=== PATIENT | male | born 1950 | race Caucasian/White ===

== ENCOUNTER 2022-05-14 09:52 | Emergency (ER) | payer BC, SELFPAY ==
[2022-05-14 10:24] VITALS: BP 190/105; PULSE 61; RESP 18; TEMP 36.4; O2SAT 99; BMI 27.8
[2022-05-14 10:28] VITALS: PULSE 57; O2SAT 98
[2022-05-14 10:30] VITALS: BP 176/82; PULSE 58; O2SAT 98
--- NOTE | 2022-05-14 10:40 | PC.NURSE ---
Spoke to pt's on the phone before pt's arrival. asking if pt should come to ED to be seen for his tooth pain x 3 days. Advised for pt to call Dentist for an emergent consult. stated We have an appt at 11 but they aren't sure what they can do, he needs it pulled RN advised pt's that we cannot pull teeth in the ED and if he has and appt with a dentist office then they should try that first before coming to ED. Pt missed appt and arrived to ED. Given ice pack to face while waiting for MD mari. Pt states laura spencer run out of here if i cant get some pain meds soon. Pt advised of wait and offered tylenol and ibuprofen and states he already took some at home and that it didnt do anything. NAD at this time.
--- NOTE | 2022-05-14 11:57 | PC.NURSE ---
Pt and very upset about wait. Updated frequently. Ice pack offered, declined, then accepted. States they had an appointment (initially said they did not) and are upset they missed it. Discussed triage, having to see most ill first. Continued to be very annoyed with staff. Encouraged patience. Provider aware however unstable pt's in ED being seen. Pt/family aware 2nd provider is coming on at 1200.
[2022-05-14] MEDS: KETOROLAC 30 MG/ML VIAL IM (12:07)
--- NOTE | 2022-05-14 12:09 | ED_ITS ---
HPI - Dental/Oral <Elana Ortega PA-C - Last Filed: 05/14/22 12:32> General Chief complaint: Dental/Oral Stated complaint: Tooth Pain Time Seen by Provider: 05/14/22 11:58 Source: patient and family Mode of arrival: Ambulatory History of Present Illness HPI Narrative: 71-year-old male with past medical history hypertension presents to the emergency room with 4 days of right-sided lower tooth pain. Patient states that he had a root canal done on it several years ago. Patient states that his pain started spontaneously 4 days ago, has been getting worse. Patient denies seeing any discharge. Patient denies fever, chills, nausea, vomiting, trouble swallowing. Patient states he has been taking ibuprofen and Tylenol with minimal relief. Patient called his dentist this morning, they directed him to the ED for antibiotics and pain control prior to seeing him. Related Data Home Medications Medication Instructions Recorded Confirmed metoprolol tartrate 50 mg tablet 50 mg PO QDAY ##0 03/13/16 Previous Rx's Medication Instructions Recorded acetaminophen 300 mg-codeine 15 mg 1 tab PO Q8H PRN pain #14 tabs 05/14/22 tablet amoxicillin 875 mg-potassium 1 tab PO Q12H 14 days #28 tabs 05/14/22 clavulanate 125 mg tablet Allergies Allergy/AdvReac Type Severity Reaction Status Date / Time No Known Drug Allergies Allergy Verified 05/14/22 10:27 Review of Systems <Elana Ortega PA-C - Last Filed: 05/14/22 12:32> Review of Systems ROS Unobtainable: All systems reviewed & are unremarkable except as noted in HPI and below Constitutional Constitutional: Denies chills, Denies fatigue, Denies fever(s), Denies frequent falls, Denies lethargy and Denies weakness Eyes Eyes: Denies change in vision, Denies eye discharge, Denies irritation and Denies loss of vision ENT Ears, Nose, Mouth, and Throat: Denies change in voice, Reports dental pain, Denies dizziness, Denies neck pain, Denies sore throat and Denies throat swelling Cardiovascular Cardiovascular: Denies chest pain, Denies irregular heart rhythm, Denies lightheadedness, Denies palpitations, Denies dyspnea, Denies dyspnea on exertion and Denies orthopnea Respiratory Respiratory: Denies cough, Denies dyspnea, Denies dyspnea on exertion and Denies wheezing Gastrointestinal Gastrointestinal: Denies abdominal pain, Denies change in bowel habits, Denies diarrhea, Denies nausea and Denies vomiting Genitourinary Genitourinary: Denies hematuria, Denies flank pain, Denies urinary incontinence and Denies urinary urgency Musculoskeletal Musculoskeletal: Denies back pain, Denies muscle weakness, Denies neck pain, Denies numbness and Denies tingling Integumentary/Breasts Skin/Breast: Denies pruritus, Denies erythema, Denies rash and Denies wounds Neurologic Neurologic: Denies behavioral changes, Denies confusion, Denies dizziness, Denies frequent falls, Denies loss of vision, Denies numbness, Denies tingling and Denies weakness Psychiatric Psychiatric: Denies anxiety, Denies behavioral changes, Denies confusion, Denies depression, Denies homicidal ideation and Denies suicidal ideation Endocrine Endocrine: Denies fatigue, Denies flushing and Denies palpitations Hematologic/Lymphatic Hematologic/Lymphatic: Denies easy bruising Allergic/Immunologic Allergic/Immunologic: Denies urticaria, Denies throat swelling and Denies wheezing Patient History <Elana Ortega PA-C - Last Filed: 05/14/22 12:32> Social History Smoking Status: Former smoker Smoking Status: Former smoker alcohol intake frequency: 3 or more drinks per day Substance Use Type: does not use Exam <Elana Ortega PA-C - Last Filed: 05/14/22 12:32> Narrative Exam Narrative: Const General:?cooperative, healthy appearing and comfortable [facility] Head:?normal to inspection Ears:?hearing grossly normal bilaterally Nose:?external nose normal Face and sinus:?normal facial exam and sinuses nontender Mouth:?oral mucosae normal; TTP of gums inferior to teeth 20, 21. PE consistent with a periapical abscess. Airway patent. No drooling. Throat:?posterior oropharynx normal Eyes General:?appearance normal, both eyes and all related structures Neck Neck:?normal visual inspection and no lymphadenopathy noted Resp Effort & Inspection:?normal respiratory effort Auscultation:?clear to auscultation bilaterally Cardio Rate:?regular rate Rhythm:?regular rhythm Neuro General:?patient alert, patient awake and patient oriented x3 Initial Vital Signs Initial Vital Signs: Vital Signs Temperature 97.6 F 05/14/22 10:24 Pulse Rate 61 05/14/22 10:24 Respiratory Rate 18 05/14/22 10:24 Blood Pressure 190/105 H 05/14/22 10:24 Pulse Oximetry 99 05/14/22 10:24 Oxygen Delivery Method 05/14/22 10:24 <Maddison Delcid DO - Last Filed: 05/14/22 18:57> Initial Vital Signs Initial Vital Signs: Vital Signs Temperature 97.6 F 05/14/22 10:24 Pulse Rate 61 05/14/22 10:24 Respiratory Rate 18 05/14/22 10:24 Blood Pressure 190/105 H 05/14/22 10:24 Pulse Oximetry 99 05/14/22 10:24 Oxygen Delivery Method 05/14/22 10:24 Course <Elana Ortega PA-C - Last Filed: 05/14/22 12:32> Orders Ordered: Discontinued Medications Ketorolac Tromethamine (Ketorolac 30 Mg/Ml Vial) 30 mg IM NOW ONE Stop: 05/14/22 11:59 Last Admin: 05/14/22 12:07 Dose: 30 mg Documented By: CTS Vital Signs Vital signs: Vital Signs - 8 hr 05/14/22 12:30 Pulse Rate 80 Respiratory Rate 18 Blood Pressure 160/80 H Pulse Oximetry 98 <Maddison Delcid DO - Last Filed: 05/14/22 18:57> Orders Ordered: Discontinued Medications Ketorolac Tromethamine (Ketorolac 30 Mg/Ml Vial) 30 mg IM NOW ONE Stop: 05/14/22 11:59 Last Admin: 05/14/22 12:07 Dose: 30 mg Documented By: CTS Vital Signs Vital signs: Vital Signs - 8 hr 05/14/22 12:30 Pulse Rate 80 Respiratory Rate 18 Blood Pressure 160/80 H Pulse Oximetry 98 MDM - Dental/Oral <Elana Ortega PA-C - Last Filed: 05/14/22 12:32> MDM Narrative Medical decision making narrative: 71-year-old male with past medical history hypertension presents to the emergency room with 4 days of right-sided lower tooth pain. Physical exam consistent with a periapical abscess on a right lower tooth. Will start patient on antibiotics. Prescribed Tylenol with codeine for pain. Patient agrees to follow-up with his dentist as soon as possible. ED return precautions were discussed with patient. Patient verbalized understanding. Discharge Plan Departure Patient Disposition: Home Clinical Impression: Toothache Instructions: DI for Dental Pain Activity Restrictions/Additional Instructions: You were evaluated in the ED today for dental pain. It is likely you have an infection such as a periapical abscess that is causing her pain. You are being started on antibiotics. Please take the antibiotics as prescribed. You will need definitive treatment for the tooth, so please follow-up with your dentist as soon as possible. Return to the ED if you have worsening symptoms, fever, chills, nausea, vomiting. Prescriptions: New acetaminophen-codeine 300-15 mg tablet 1 tab PO Q8H PRN (Reason: pain) Qty: 14 0RF amoxicillin-pot clavulanate 875-125 mg tablet 1 tab PO Q12H 14 Days Qty: 28 0RF No Action metoprolol tartrate 50 MG tablet 50 mg PO QDAY Qty: 0 Referrals: Natalie Boss PA-C [Primary Care Provider] - Visit Report Forms: Patient Portal/API <Maddison Delcid DO - Last Filed: 05/14/22 18:57> Cosign ED Attending Gavin Attestation: I was immediately available in the department for consultation. Documentation has been reviewed.
[2022-05-14 12:30] VITALS: BP 160/80; PULSE 80; RESP 18; O2SAT 98
== END 2022-05-14 12:31 | disposition home or self-care (01) ==
PROVIDERS: Emergency Provider Student in an Organized Health Care Education/Training Program; PCP Physician Assistant
DX: K08.89 Other specified disorders of teeth and supporting structures (principal)
CPT/HCPCS: 96372; 99283; J1885